=== PATIENT | female | born 1995 | race Caucasian/White ===

== ENCOUNTER 2019-10-13 08:30 | Outpatient (RCR) | payer OTHER, SELFPAY ==
--- NOTE | 2019-09-06 15:33 | PTOPEVAL ---
Thank you for referring this patient to [facility]. Please review, sign, date and return this plan of care PORFIRIO. Pt seen for initial evaluation today due to scar knee pain. She demonstrates scar hip abd weakness, significant muscle tightness of scar LE, poor movement pattern and increased pain with functional movement. She requires additional skilled therapy 2x/wk x 6 wk to achieve therapy goals. I agree with and certify that the following plan of care is medically necessary. Referring Physician Date Attending Provider: Teena Estrella, PA Referring Provider: *PT Outpatient Evaluation Start: 09/06/19 14:25 Freq: Status: Active Protocol: Document 09/06/19 14:33 CAP (Rec: 09/06/19 15:32 CAP [id number]) Outpatient Past Medical History Neurological History Hx Neurological Disorders No Significant History Cardiovascular History Hx Cardiac Disorders No Significant History Respiratory History Hx Respiratory Disorders No Significant History Gastrointestinal History Hx Gastrointestinal Disorders No Significant History Hematological History Hx Hematological Disorders No Significant History Evaluation Information Problem Diagnosis scar knee pain Onset 05/26 Cause none Subjective Information She reports her left knee pain Query Text:As Reported By Patient/ started in 06/23 with no Family known injury. She was playing kickball when her left knee started hurting. She had a x- ray and US with no impairments noted. Her right knee started hurting 05/26 with no known injury. No testing performed on right LE. She c/o grinding and popping of left knee. She c/o pain with right knee motion. Reports the knee will occasionally give out. She reports min pain with squating . She is unable to terence lunges due to pain. She has increased scar knee pain with descending steps. Reports she is unable to terence running due to her knee pain. She has been performing low impact fitness and light UE resistance exercise 2x/wk, but states she is not consistent with going to the gym. Diagnostic Tests X-Rays For This Problem No MRI For This Prob
--- NOTE | 2019-10-13 09:28 | PTOPEVAL ---
Thank you for referring this patient to [facility]. Please review, sign, date and return this plan of care PORFIRIO. Pt has received 9 therapy visits to address chronic scar knee pain. She demonstrates progress with LE strength and flexibility, but limited progress with knee pain with fitness routine and negotiating steps. Recommend additional PT 2x/wk x 2 wk to progress HEP, advanced movement activities and ed on proper technique for fitness routine. I agree with and certify that the following plan of care is medically necessary. Referring Physician Date Attending Provider: Teena Estrella, PA Referring Provider: *PT Outpatient Re-Evaluation Start: 09/06/19 14:25 Freq: Status: Active Protocol: Document 10/13/19 08:36 ALIYA (Rec: 10/13/19 09:18 [facility] [id number]) Therapy Assessment Status Assessment Status Assessment Status Re-evaluation Evaluation Information Problem Diagnosis scar knee pain Onset 05/26 Subjective Information Reports her knee has no pain Query Text:As Reported By Patient/ at rest. But cont to have pain Family with running, steps and walking uneven ground. REports right knee pain with knee ext and cracking noise of left knee with knee ext. Reports the right knee will give out when using the eliptical. She reports no pain with lunges, but slight pain with lunges. States the pain is improved with proper alignment of her legs. She is going to the gym 2-3x/ wk. She is performing HEP and eliptical at the gym. Denies pain with bike, but does not usually use the bike due to does not feel a workout on it. Pain Assessment Timing of Pain Assessment Timing of Pain Assessment Re-assessment Pain Scale Pain Scale Used Numeric (1 - 10) Self Report Pain Assessment Left Knee(s) Reported Pain Level 0 Pain Description Aching Pain Frequency Chronic,Intermittent Current Pain Intensity 0 Greatest Pain Intensity 2 Pain Aggravating Factors Exercise/Activity,Stair Climbing Pain Behaviors None Pain Relief Interventions Used By Exercise Patient Right Knee(s) Reported Pain Level 0 Pain Description Aching Pain Frequency
--- NOTE | 2019-11-15 10:28 | PCPTNOTE ---
Attending Provider: Teena Estrella, PA Patient:Isi Brizuela Date of :1995 Patient has not returned for any further treatments since reassessment on 10/13/2019, therefore she will be discharged from therapy at this time. The goals have been partially achieved due to no additional therapy provided since last therapy update performed. Thank you for referring this patient to [facility]. Please review, sign, date and return this discharge summary PORFIRIO. I have been updated about the patient's current status and I agree with discharge from the above service at this time. Referring Physician Date
== END 2019-11-15 11:21 | disposition home or self-care (01) ==
LOC: ANHPT 08:30
PROVIDERS: PCP Physician Assistant; Visit Provider Physician Assistant
DX: M25.569 Pain in unspecified knee (principal)
CPT/HCPCS: 97110; 97112; 97140; 97162; 97530

== ENCOUNTER 2019-10-31 07:50 | Outpatient (CLI) | payer OTHER, SELFPAY ==
--- NOTE | ~2019-10-31 | MR_ITS ---
EXAMINATION: MR knee LT wo con DATE: 10/31/2019 08:52 INDICATION: Left knee joint disorder presenting with anterior left knee pain. TECHNIQUE: Magnetic resonance imaging (MRI) of the left knee was performed without intravenous contra st. Sequences included coronal PD-weighted FSE, coronal PD-weighted FS FSE, sagittal T2-weighted FSE , sagittal PD-weighted FS FSE and axial PD weighted fat saturated FSE. COMPARISON: None. FINDINGS: Medial compartment: Medial meniscus is normal. Articular cartilage is normal. Lateral compartment: Lateral meniscus is normal. Articular cartilage is normal. Patellofemoral compartment: Full-thickness chondral fissuring with mild subarticular edema along the inferior half of the lateral patellar facet. Mild chondral surface irregularity along the lateral trochlea. Ligaments and tendons: Anterior and posterior cruciate ligaments are normal. The medial collateral ligament and fibular sin ateral ligament complex are normal. The extensor mechanism is normal. The visualized medial and later al hamstring tendons as well as the iliotibial band are normal. Fluid: Physiologic amount of fluid in the joint space. No loose osteochondral bodies identified. Osseous/other: Aside from the subarticular edema at the inferior lateral patellar facet there is normal marrow signa l. No fracture or pathologic marrow replacing process. There is edema at the lateral aspect of the in frapatellar fat pad consistent with fat pad impingement syndrome. IMPRESSION: 1. 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 Reviewed, dictated and finalized at location A. L FURRER IMPRESSION: 1. 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
== END 2019-10-31 07:51 | disposition home or self-care (01) ==
LOC: ANHIMG 07:58
PROVIDERS: PCP Physician Assistant; Visit Provider Physician Assistant
DX: M25.862 Other specified joint disorders, left knee (principal); R93.6 Abnormal findings on diagnostic imaging of limbs
CPT/HCPCS: 73721

== ENCOUNTER 2020-03-02 08:22 | Emergency (ER) | payer OTHER, SELFPAY ==
[2020-03-02 08:52] VITALS: BP 124/82; PULSE 75; RESP 18; TEMP 36.8; O2SAT 100
--- NOTE | 2020-03-02 09:09 | ED.GENADULT ---
HPI - General Adult General Chief complaint: Eye Problems Stated complaint: eye problems Time Seen by Provider: 03/02/20 09:10 Source: patient Mode of arrival: ambulatory Limitations: no limitations History of Present Illness HPI narrative: Isi Brizuela is a 24 yo female with no PMH who comes to the [facility] with spreading poison toi. Is now on face- started yesterday after trimming bushes Related Data Home Medications Medication Instructions Recorded Confirmed desogestrel-ethinyl estradiol tablet 03/02/20 [Isibloom] Allergies Allergy/AdvReac Type Severity Reaction Status Date / Time No Known Allergies Allergy Unknown Unverified 09/03/17 10:36 Review of Systems Review of Systems: Narrative: CONSTITUTIONAL: Denies fever, chills, sweats. EYES: Denies visual changes, redness, discharge. ENT: Denies rhinorrhea, congestion, sore throat, otalgia. CARDIOVASCULAR: Denies chest pain, palpitations, edema. RESPIRATORY: Denies dyspnea, wheezing, cough GASTROINTESTINAL: Denies abdominal pain, nausea, vomiting, diarrhea. GENITOURINARY: Denies dysuria, hematuria, abnormal discharge SKIN: contact dermatitus on neck, fave, L eyelid, arms NEUROLOGIC: Denies numbness, or focal weakness. PSYCHIATRIC: Denies anxiety or depression. [facility] Family History Family History (Updated 03/02/20 @ 09:21 by Kiarra Covington CNP) Other Depression Diabetes mellitus Hypertension Social History Social History (Updated 03/02/20 @ 09:21 by Kiarra Covington CNP) Smoking status: Never smoker Alcohol intake: current Comments At time of signature, I agree with nursing past medical, surgical, social and family history. There is no relevant family history pertinent to the presenting complaint. Exam Narrative: Exam Narrative: GENERAL: This is a well-nourished, well-developed patient, in mild distress. HEAD: normocephalic, atraumatic. EYES: Sclera clear/white. Vision is grossly intact. EARS: External ears normal. Hearing grossly intact. NOSE: External nose normal without nasal discharge, nares without redness, no rhinorrhea. THROAT: Mucous membranes moist, NECK: Neck supple, CARDIOVASCULAR: Regular rate and rhythm without murmurs, gallops, or rubs. RESPIRATORY: Clear to auscultation. Breath sounds equal bilaterally. No wheezes, rales, or rhonchi. GASTROINTESTINAL: Abdomen soft, SKIN: warm, intact with papular rash on neck, forehead, L cheek, L eyelid , forearms, pruretic, intermittent small vesicles NEURO: awake, alert, and oriented to person, place and time. There were no obvious focal neurologic abnormalities. Steady gait EXTREMITIES: Normal range of motion. BACK: Nontender without deformity Course Course Emergency Course: IM penicillin injection now Started on prednisone taper pack along with Benadryl and hydrocortisone/Benadryl lotion Follow-up with PCP Vital Signs Vital signs: Vital Signs Temperature 98.2 F 03/02/20 08:52 Pulse Rate 75 03/02/20 08:52 Respiratory Rate 18 03/02/20 08:52 Blood Pressure 124/82 03/02/20 08:52 Pulse Oximetry 100 03/02/20 08:52 Temperature 98.2 F 03/02/20 08:52 Pulse Rate 75 03/02/20 08:52 Respiratory Rate 18 03/02/20 08:52 Blood Pressure 124/82 03/02/20 08:52 Pulse Oximetry 100 03/02/20 08:52 Medical Decision Making Differential Diagnosis Differential Diagnosis: Contact dermatitis versus poison toi versus bacterial infection Vital Signs Vital Signs: Vital Signs Temperature 98.2 F 03/02/20 08:52 Pulse Rate 75 03/02/20 08:52 Respiratory Rate 18 03/02/20 08:52 Blood Pressure 124/82 03/02/20 08:52 Pulse Oximetry 100 03/02/20 08:52 Temperature 98.2 F 03/02/20 08:52 Pulse Rate 75 03/02/20 08:52 Respiratory Rate 18 03/02/20 08:52 Blood Pressure 124/82 03/02/20 08:52 Pulse Oximetry 100 03/02/20 08:52 Discharge Plan Discharge Clinical Impression: Contact dermatitis Qualifiers: Contact d
--- NOTE | 2020-03-02 10:18 | PC.NURSE ---
solumedrol discontinued by provider and decadron was ordered and given.
== END 2020-03-02 10:02 | disposition home or self-care (01) ==
PROVIDERS: Emergency Provider Nurse Practitioner
DX: L23.7 Allergic contact dermatitis due to plants, except food (principal)
CPT/HCPCS: 96372; 99213; G0463; J1100

== ENCOUNTER 2021-05-13 17:09 | Inpatient (IN) | payer OTHER, SELFPAY ==
[2021-05-13] VITALS (16 sets, daily range): BP systolic 91–137; BP diastolic 51–83; PULSE 87–98; RESP 18; TEMP 36.9–37.4; BMI 33.5
[2021-05-13 17:47] LABS: Basophils Percent Auto 0.1 % (0.2-1.2); Eosinophils Percent Auto 0.3 % (0-4.4); Hematocrit 33.4 % (37.0-47.0); Hemoglobin 11.4 g/dL (12.0-15.0); Immature Granulocyte Absolute 0.05 K/mm3 (0.00-0.031); Immature Granulocyte Percent A 0.5 % (0-0.5); Lymphocytes Absolute Auto 2.01 K/mm3 (0.9-3.2); Lymphocytes Percent Auto 21.5 % (18.3-44.2); Mean Corpuscular HGB Conc 34.1 g/dl (32-36); Mean Corpuscular Hemoglobin 31.1 pg (26-34); Mean Corpuscular Volume 91.3 fl (80-100); Mean Platelet Volume 10.8 fl (7.4-10.4); Monocytes Absolute Auto 0.7 K/mm3 (0.1-0.6); Monocytes Percent Auto 7.5 % (2.6-8.5); Neutrophils Absolute Auto 6.6 K/mm3 (1.3-6.7); Neutrophils Percent Auto 70.1 % (45.5-73.1); Platelet Count Result 181 k/mm3 (150-375); Red Blood Count 3.66 M/mm3 (4.2-5.4); Red Cell Distribution Width 12.1 % (11.5-14.5); White Blood Count 9.4 K/mm3 (4.5-10.0)
--- NOTE | 2021-05-13 17:51 | LDADM ---
This patient, FRANTZ MARTINEZ, was admitted to Labor/Delivery/Recovery 107 on 05/13/21 at 17:09. Plans for labor, pain management and were discussed with patient. Patient/family oriented to hospital policies and general routines including ID bracelet, bed and alarms, visiting hours, pain management, procedures, bathroom and other care routines, personal items, smoking policy, room service/diet and guest tray routines, security routines, and visiting hours. Patient/Family are encouraged to report perceived risks to care and to ask questions if they do not understand what they are told or what they should do. See OBIX for further documentation.
[2021-05-13 18:00] LABS: Alanine Aminotransferase 21 U/L (4-35); Albumin Level 3.6 g/dL (3.5-5.1); Alkaline Phosphatase 109 U/L (38-126); Anion Gap 6 mmol/L (8-16); Aspartate Amino Transferase 27 U/L (14-36); Bilirubin,Total 0.5 mg/dL (0.2-1.3); Blood Urea Nitrogen 13 mg/dL (7-17); Carbon Dioxide 19 mmol/L (22-30); Chloride 109 mmol/L (98-107); Estimated Glomerular Filt Rate > 60; Glucose 94 mg/dL (65-110); Potassium 3.8 mmol/L (3.4-5.0); Sodium 134 mmol/L (137-145); Uric Acid 5.3 mg/dL (2.5-7.5)
[2021-05-13] MEDS: DINOPROSTONE 10 MG VAG INSERT VAGINAL (18:32)
[2021-05-14] VITALS (201 sets, daily range): BP systolic 85–169; BP diastolic 24–136; PULSE 38–255; RESP 16–20; TEMP 36.2–37; O2SAT 84–100
--- NOTE | 2021-05-14 06:08 | WPDANESEPP ---
Anes - Eval Pre Procedure Procedure: labor epidural Date/Time: 05/14/21 06:08 Surgeon: benjamin Preop Diagnosis: pain during labor Pre Op Diagnosis: Induction of Labor Patient Data Age: 26 Gender: F Height: 1.73 m Weight: 100 kg Last Vital Signs Temp 37.0 C 05/14/21 04:09 Pulse 87 05/14/21 05:47 Resp 20 05/14/21 04:09 BP 110/65 05/14/21 05:47 Allergies Allergy/AdvReac Type Severity Reaction Status Date / Time No Known Allergies Allergy Verified 04/27/21 13:42 Home Medications Medication Instructions Recorded Confirmed Type labetalol 100 mg PO Q12H 04/27/21 04/27/21 History [id number] fum-folic ac-om3 1 pkg PO DAILY 04/27/21 04/27/21 History [Daily ] Laboratory Tests 05/13/21 05/13/21 05/13/21 17:38 17:38 17:38 WBC 9.4 K/mm3 K/mm3 (4.5-10.0) RBC 3.66 M/mm3 L M/mm3 (4.2-5.4) Hgb 11.4 g/dL L g/dL (12.0-15.0) Hct 33.4 % L % (37.0-47.0) MCV 91.3 fl fl (80-100) MCH 31.1 pg pg (26-34) MCHC 34.1 g/dl g/dl (32-36) RDW 12.1 % % (11.5-14.5) Plt Count 181 k/mm3 k/mm3 (150-375) MPV 10.8 fl H fl (7.4-10.4) Immature Gran % (Auto) 0.5 % % (0-0.5) Neut % (Auto) 70.1 % % (45.5-73.1) Lymph % (Auto) 21.5 % % (18.3-44.2) Deuel % (Auto) 7.5 % % (2.6-8.5) Eos % (Auto) 0.3 % % (0-4.4) Baso % (Auto) 0.1 % L % (0.2-1.2) Lymph # (Auto) 2.01 K/mm3 K/mm3 (0.9-3.2) Deuel # (Auto) 0.7 K/mm3 H K/mm3 (0.1-0.6) Eos # (Auto) 0.0 K/mm3 K/mm3 (0-0.3) Baso # (Auto) 0.0 K/mm3 K/mm3 (0.0-0.1) Abs Immat Gran (auto) 0.05 K/mm3 H K/mm3 (0.00-0.031) Absolute Neuts (auto) 6.6 K/mm3 K/mm3 (1.3-6.7) Absolute Nucleated RBC 0.0 K/mm3 K/mm3 (0.0-0.012) Nucleated RBC % 0.0 % % (0.0-0.2) Sodium 134 mmol/L L mmol/L (137-145) Potassium 3.8 mmol/L mmol/L (3.4-5.0) Chloride 109 mmol/L H mmol/L (98-107) Carbon Dioxide 19 mmol/L L mmol/L (22-30) Anion Gap 6 mmol/L L mmol/L (8-16) BUN 13 mg/dL mg/dL (7-17) Creatinine 0.80 mg/dL mg/dL (0.7-1.0) Estim Creat Clear Calc Not Reportable Estimated GFR > 60 (59 - ) Glucose 94 mg/dL mg/dL (65-110) Uric Acid 5.3 mg/dL mg/dL (2.5-7.5) Calcium 9.0 mg/dL mg/dL (8.4-10.2) Total Bilirubin 0.5 mg/dL mg/dL (0.2-1.3) AST 27 U/L U/L (14-36) ALT 21 U/L U/L (4-35) Alkaline Phosphatase 109 U/L U/L (38-126) Total Protein 7.0 g/dL g/dL (6.3-8.2) Albumin 3.6 g/dL g/dL (3.5-5.1) RPR Pending Blood Type Antibody Screen 05/13/21 05/13/21 17:38 17:38 WBC RBC Hgb Hct MCV MCH MCHC RDW Plt Count MPV Immature Gran % (Auto) Neut % (Auto) Lymph % (Auto) Deuel % (Auto) Eos % (Auto) Baso % (Auto) Lymph # (Auto) Deuel # (Auto) Eos # (Auto) Baso # (Auto) Abs Immat Gran (auto) Absolute Neuts (auto) Absolute Nucleated RBC Nucleated RBC % Sodium Cancelled Potassium Cancelled Chloride Cancelled Carbon Dioxide Cancelled Anion Gap Cancelled BUN Cancelled Creatinine Cancelled Estim Creat Clear Calc Cancelled Estimated GFR Cancelled Glucose Cancelled Uric Acid Calcium Cancelled Total Bilirubin Cancelled AST Cancelled ALT Cancelled Alkaline Phosphatase Cancelled Total Protein Cancelled Albumin Cancelled RPR
--- NOTE | 2021-05-14 07:47 | WPDOBADMIT ---
Obstetrics - Admit Note Admission Note: 26 y/o G1 @ 38w1d here for induction of labor d/t chtn. VSS Contractions occasiona FHR category 1 Cervix 60/-2 Anticipate record reviewed. No pertinent additions to the history and/or any subsequent changes in the physical findings that are not consistent with the expected course of the were found. Additions to the history and/or subsequent changes in the physical findings follow. None.
[2021-05-14] MEDS: OXYTOCIN 30 UNITS/NS 500 ML 30 UNITS/500 ML BAG 6 UNITS IV CONT (08:28)
[2021-05-14] MEDS: LACTATED RINGERS 1,000 ML 125 ML IV CONT (08:28)
[2021-05-14 10:30] LABS: Rapid Plasma Reagin Non-Reactive (NonReactive)
--- NOTE | 2021-05-14 13:04 | P.PNOB_ITS ---
OB - PN: Subj Subjective Date/time seen: 05/14/21 13:04 discussed abnormal heart tones with patient, we discussed proceeding with delivery. We observed for a period of time. After an hour of the decelerations of the heart rate appeared resolved. We have agreed to move forward. She has made some cervical change. There is reassuring status. OB - PN: Obj Data Labs CBC & Chem 7: 05/13/21 17:38 05/13/21 17:38 Labs: Laboratory Results - last 24 hr 05/13/21 05/13/21 05/13/21 17:38 17:38 17:38 WBC 9.4 RBC 3.66 L Hgb 11.4 L Hct 33.4 L MCV 91.3 MCH 31.1 MCHC 34.1 RDW 12.1 Plt Count 181 MPV 10.8 H Immature Gran % (Auto) 0.5 Neut % (Auto) 70.1 Lymph % (Auto) 21.5 Cascade % (Auto) 7.5 Eos % (Auto) 0.3 Baso % (Auto) 0.1 L Lymph # (Auto) 2.01 Cascade # (Auto) 0.7 H Eos # (Auto) 0.0 Baso # (Auto) 0.0 Abs Immat Gran (auto) 0.05 H Absolute Neuts (auto) 6.6 Absolute Nucleated RBC 0.0 Nucleated RBC % 0.0 Sodium 134 L Potassium 3.8 Chloride 109 H Carbon Dioxide 19 L Anion Gap 6 L BUN 13 Creatinine 0.80 Estim Creat Clear Calc Not Reportable Estimated GFR > 60 Glucose 94 Uric Acid 5.3 Calcium 9.0 Total Bilirubin 0.5 AST 27 ALT 21 Alkaline Phosphatase 109 Total Protein 7.0 Albumin 3.6 RPR Non-reactive Blood Type Antibody Screen 05/13/21 05/13/21 17:38 17:38 WBC RBC Hgb Hct MCV MCH MCHC RDW Plt Count MPV Immature Gran % (Auto) Neut % (Auto) Lymph % (Auto) Cascade % (Auto) Eos % (Auto) Baso % (Auto) Lymph # (Auto) Cascade # (Auto) Eos # (Auto) Baso # (Auto) Abs Immat Gran (auto) Absolute Neuts (auto) Absolute Nucleated RBC Nucleated RBC % Sodium Cancelled Potassium Cancelled Chloride Cancelled Carbon Dioxide Cancelled Anion Gap Cancelled BUN Cancelled Creatinine Cancelled Estim Creat Clear Calc Cancelled Estimated GFR Cancelled Glucose Cancelled Uric Acid Calcium Cancelled Total Bilirubin Cancelled AST Cancelled ALT Cancelled Alkaline Phosphatase Cancelled Total Protein Cancelled Albumin Cancelled RPR Blood Type O Positive Antibody Screen Negative OB - PN A/P Time Spent With Patient Time: Total time spent is greater than 50% in coordination of care (as document ed) at patient's floor/unit and/or counseling patient:
--- NOTE | 2021-05-14 16:50 | PM.IMHP ---
H&P: HPI History of Present Illness Date/Time: 05/14/21 16:50 This patient is a 26-year-old female, 1 at 38 weeks gestation with chronic hypertension. She was induced for chronic hypertension. She has had nonreassuring heart tones at times throughout the day during her induction of labor. She denies any nausea, vomiting, fever, chills. She is lisbeth. She has epidural that is working well. She denies any chest pain or shortness of breath. Chief Complaint: Nonreassuring status Review of Systems Review of Systems: All systems reviewed & are unremarkable except as noted in HPI and below PMFSH Past Medical History Medical History (Updated 05/14/21 @ 16:53 by Greg Betancourt MD) HTN (hypertension) Family History Family History (Updated 04/27/21 @ 13:41 by Susan Choudhary RN) Father Diabetes mellitus Hypertension Social History Social History Smoking status: Never smoker Substance use: never Gender identity (if verbalized by the patient): Female Spiritual care concerns: No Meds Home Medications and Allergies Home Medications Medication Instructions Recorded Confirmed Type labetalol 100 mg PO Q12H 04/27/21 04/27/21 History [id number] fum-folic ac-om3 1 pkg PO DAILY 04/27/21 04/27/21 History [Daily ] Allergies Allergy/AdvReac Type Severity Reaction Status Date / Time No Known Allergies Allergy Verified 04/27/21 13:42 Vital Signs Vital Signs - 24 hr 05/13/21 17:27 05/13/21 17:31 05/13/21 17:46 Temperature Pulse Rate 98 96 95 Respiratory Rate Blood Pressure 135/82 137/83 133/76 Pulse Oximetry 05/13/21 18:01 05/13/21 18:16 05/13/21 18:34 Temperature 98.5 F Pulse Rate 88 87 Respiratory Rate 18 Blood Pressure 126/71 124/74 Pulse Oximetry 05/13/21 18:46 05/13/21 19:01 05/13/21 19:16 Temperature Pulse Rate 89 92 96 Respiratory Rate Blood Pressure 121/71 121/69 102/51 L Pulse Oximetry 05/13/21 19:31 05/13/21 19:46 05/13/21 20:01 Temperature Pulse Rate 92 90 93 Respiratory Rate Blood Pressure 108/51 L 97/55 L 91/55 L Pulse Oximetry 05/13/21 20:16 05/13/21 20:31 05/13/21 21:45 Temperature 99.3 F Pulse Rate 89 92 Respiratory Rate Blood Pressure 104/59 L 105/58 L Pulse Oximetry 05/13/21 21:57 05/14/21 01:49 05/14/21 01:50 Temperature 98.3 F Pulse Rate 92 79 Respiratory Rate 18 Blood Pressure 124/80 116/58 L Pulse Oximetry 05/14/21 04:09 05/14/21 05:47 05/14/21 07:44 Temperature 98.6 F 97.7 F Pulse Rate 88 87 83 Respiratory Rate 20 Blood Pressure 100/61 110/65 129/88 Pulse Oximetry 05/14/21 09:01 05/14/21 09:16 05/14/21 09:30 Temperature 98.2 F Pulse Rate 89 91 Respiratory Rate Blood Pressure 133/75 118/83 Pulse Oximetry 05/14/21 09:31 05/14/21 09:46 05/14/21 10:01 Temperature Pulse Rate 96 84 88 Respiratory Rate Blood Pressure 129/95 H 149/99 H 146/106 H Pulse Oximetry 05/14/21 10:14 05/14/21 10:15 05/14/21 10:16 Temperature Pulse Rate 95 97 Respiratory Rate Blood Pressure 140/81 134/86 Pulse Oximetry 100 05/14/21 10:17 05/14/21 10:19 05/14/21 10:21 Temperature Pulse Rate 88 91 84 Respiratory Rate Blood Pressure 127/82 109/97 H 128/97 H Pulse Oximetry 100 05/14/21 10:23 05/14/21 10:24 05/14/21 10:25 Temperature Pulse Rate 92 90 Respiratory Rate Blood Pressure 121/88 120/90 Pulse Oximetry 100 05/14/21 10:27 05/14/21 10:28 05/14/21 10:29 Temperature Pulse Rate 89 74 Respiratory Rate Blood Pressure 116/94 H 123/70 Pulse Oximetry 100 05/14/21 10:31 05/14/21 10:33 05/14/21 10:35 Temperature Pulse Rate 87 79 86 Respiratory Rate Blood Pressure 134/66 121/71 108/54 L Pulse Oximetry 100 05/14/21 10:37 05/14/21 10:38 05/14/21 10:39 Temperature Pulse Rate 80 89 Respiratory Rate Blood Pressure 109/55 L 123/55 L P
--- NOTE | 2021-05-14 16:54 | WPDHPUPDATE1 ---
History and Physical Update Update Date/Time: 05/14/21 16:54 History and Physical has been reviewed, including an updated exam of the patient. There are NO changes in the patient's condition. Risks, benefits, and alternatives have been discussed and questions answered. Patient agrees to proceed with procedure.
[2021-05-14] MEDS: KETOROLAC 30 MG/ML VIAL (*BKC) IV PUSH (17:30)
--- NOTE | 2021-05-14 18:00 | W.PM.PROC2 ---
Procedure Note - Detailed Date of Procedure 05/14/21 Pre-op Diagnosis Nonreassuring heart tones, chronic hypertension, failure to progress Post-op Diagnosis same Procedure Performed Low-transverse section Surgeon Greg Betancourt MD Anesthesia spinal Findings Normal gestational maternal anatomy, average size , normal Apgars. Description of Procedure The patient was taken the operating room. She was prepped and draped in dorsal supine position with a leftward tilt. This was done after spinal anesthetic was applied. A low-transverse skin incision was made and carried down till of the fascia with the knife. The fascial incision was made with the knife. The fascial incision was extended laterally with Ag scissors. The fascia was tented upward superiorly and inferiorly the rectus muscles were dissected off bluntly. The rectus muscles were the midline. The preperitoneal fat and peritoneum were dissected open bluntly at the superior aspect of the rectus muscles. The peritoneal incision was extended superior and inferior with good position of bladder. The uterine incision was made with a scalpel down to the level of the amniotic cavity. The amniotic cavity was entered bluntly. The infant was delivered. The cord was clamped and cut and the infant was handed off to waiting pediatric staff. Cord bloods were obtained. The placenta was removed manually. The uterus was exteriorized. The uterus was cleared of all clots, debris and membranes. The uterus was closed in 0 Vicryl running lock fashion. An imbricating over a was placed along the incision line as well. The uterus was returned to the abdomen. The gutters were cleared of all clots and debris. The fascia was closed with 0 Vicryl running fashion. The subcutaneous tissue was irrigated pinpoint bleeders were cauterized. The skin was closed with subcuticular absorbable carrie. The skin incision line was covered with glue. The patient tolerated the procedure well. She has taken recovery room in stable condition. Sponge lap and needle counts were correct x2. Estimated Blood Loss 700 Pathology yes Complications No immediate complications Condition stable Disposition PACU
[2021-05-14] MEDS: HYDROmorphone HCL INJ (*CRX) 1 MG/ML SYR 0.5 MG IV PUSH ×2 (19:25→20:57)
[2021-05-14] MEDS: OXYTOCIN 30 UNITS/NS 500 ML 30 UNITS/500 ML BAG 125 UNITS IV CONT (19:25)
--- NOTE | 2021-05-14 20:02 | SUR.PHASEI ---
0 - Underpad and peripad changed; pt tolerated well.
--- NOTE | 2021-05-14 21:06 | OBPPTRN ---
Patient transferred to post room #286 via stretcher. Support person present. Oriented to unit, room, information board, rooming in, admission packet and security measures. Patient verbalizes understanding.
--- NOTE | 2021-05-14 21:23 | PC.NURSE ---
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 Orders for 0.5mg IVpush Diludid once now.
[2021-05-14] MEDS: LABETALOL HCL 100 MG TABLET PO (21:53)
[2021-05-14] MEDS: SIMETHICONE 80 MG TAB.CHEW PO (22:50)
[2021-05-14] MEDS: HYDROcodone/acetaminophen (*CRX) 10-325 MG TABLET 1 TAB PO (22:51)
[2021-05-14] MEDS: IBUPROFEN 600 MG TABLET PO (22:51)
[2021-05-15] MEDS: LANOLIN (LANSINOH) 7.5 GM CREAM 1 APPLIC TOPICAL
[2021-05-15 03:32] LABS: Basophils Percent Auto 0.2 % (0.2-1.2); Eosinophils Percent Auto 0.2 % (0-4.4); Hematocrit 24.3 % (37.0-47.0); Hemoglobin 8.3 g/dL (12.0-15.0); Immature Granulocyte Absolute 0.06 K/mm3 (0.00-0.031); Immature Granulocyte Percent A 0.5 % (0-0.5); Lymphocytes Absolute Auto 1.79 K/mm3 (0.9-3.2); Lymphocytes Percent Auto 13.5 % (18.3-44.2); Mean Corpuscular HGB Conc 34.2 g/dl (32-36); Mean Corpuscular Hemoglobin 31.9 pg (26-34); Mean Corpuscular Volume 93.5 fl (80-100); Mean Platelet Volume 10.8 fl (7.4-10.4); Monocytes Percent Auto 7.2 % (2.6-8.5); Neutrophils Absolute Auto 10.4 K/mm3 (1.3-6.7); Neutrophils Percent Auto 78.4 % (45.5-73.1); Platelet Count Result 142 k/mm3 (150-375); Red Cell Distribution Width 12.2 % (11.5-14.5); White Blood Count 13.2 K/mm3 (4.5-10.0)
[2021-05-15 03:45] VITALS: BP 111/62; PULSE 90; RESP 18; TEMP 36.8
[2021-05-15] MEDS: HYDROcodone/acetaminophen (*CRX) 10-325 MG TABLET 1 TAB PO ×2 (04:56→09:22)
[2021-05-15] MEDS: IBUPROFEN 600 MG TABLET PO ×3 (04:56→19:20)
--- NOTE | 2021-05-15 08:12 | P.PNOB_ITS ---
OB - PN: Subj Subjective Date/time seen: 05/15/21 08:12 Patient comments: no complaints, pain well controlled, tolerating diet and flatus present OB - PN: Obj Data Labs CBC & Chem 7: 05/15/21 03:08 05/13/21 17:38 Labs: Laboratory Results - last 24 hr 05/13/21 05/15/21 17:38 03:08 WBC 13.2 H RBC 2.60 L Hgb 8.3 L D Hct 24.3 L MCV 93.5 MCH 31.9 MCHC 34.2 RDW 12.2 Plt Count 142 L MPV 10.8 H Immature Gran % (Auto) 0.5 Neut % (Auto) 78.4 H Lymph % (Auto) 13.5 L [place] % (Auto) 7.2 Eos % (Auto) 0.2 Baso % (Auto) 0.2 Lymph # (Auto) 1.79 [place] # (Auto) 1.0 H Eos # (Auto) 0.0 Baso # (Auto) 0.0 Abs Immat Gran (auto) 0.06 H Absolute Neuts (auto) 10.4 H Absolute Nucleated RBC 0.0 Nucleated RBC % 0.0 RPR Non-reactive OB - PN A/P Plan day: 1 Comments: Post Op LTCS - no problems, routine recovery Time Spent With Patient Time: Total time spent is greater than 50% in coordination of care (as documented) at patient's floor/unit and/or counseling patient: Exam Const: General: cooperative, healthy appearing, comfortable and no acute distress Resp: Auscultation: no crackles, no rales, no rhonchi and no wheezes Cardio: Rhythm: regular rhythm Heart sounds: no click and no murmurs GI: Inspection: non-distended Auscultation: normal bowel sounds Extrem: General: normal to inspection, no pedal edema and no calf tenderness
--- NOTE | 2021-05-15 08:20 | PC.NURSE ---
Primary RN requested observation of feeding. Mother reports has been eagerly latching without difficulties or discomfort. is able to freely thrust tongue past gum ridge and flange both lips. Skin is intact on both nipples, no redness and bruising noted. Mother has to breast in football positioning, allowing to self attach. Reviewed feeding cues, frequencies, duration of feedings, feeding elimination flow sheet, and signs of adequate intake. Demonstrated stimulation techniques to wake for feeding. Assisted with to breast. Reviewed positioning/alignment in football, holding breast in ?C? hold and guided asymmetrical latch on. Discussed rational for each. able to latch correctly. Reviewed signs of a correct latch, effective nursing and suck swallow ratio. nursed eagerly, with steady draws and frequent swallowing noted. Reviewed the difference of effective vs ineffective nursing. Suggested mother stimulate while feeding to increase stimulation, increase intake and to assist with maintaining deep latch. Infant was on and off during feeding, suggesting to hold breast during entire feeding to assist infant with maintaining latch. Infant would slip to shallow latch. Demonstrated how to adjust latch more deeply while feeding. Nipple care reviewed of lanolin after feedings, warm compresses as needed.
--- NOTE | 2021-05-15 08:36 | WPDANLDPN2 ---
Anes-Prog Note L&D Date/Time: 05/15/21 08:36 Comfortable throughout: labor and section Neuraxial method: epidural Epidural/Spinal procedure site: clean & non-tender Neuro status: Neuro function grossly intact. Cardiovascular status: normal Respiratory status: normal Airway patency: baseline Mental status: baseline Post-Op hydration status: normal Vital Signs: Last Vital Signs Temp 36.8 C 05/15/21 03:45 Pulse 90 05/15/21 03:45 Resp 18 05/15/21 03:45 BP 111/62 05/15/21 03:45 Pulse Ox 100 05/14/21 21:06 Pain score (VAS): 3 I/O: Intake & Output 05/14/21 05/15/21 05/15/21 23:59 07:59 15:59 Intake Total 3000 Output Total 303 1050 Balance -303 1950 Post-procedural complaints: none Patient feedback: Patient satisfied with anesthetic care.
--- NOTE | 2021-05-15 08:36 | WPDANLDNPN2 ---
Anes-Prog Note L&D-Neuraxial Date/Time: 05/15/21 08:36 Neuraxial medications: epidural PF morphine Opiod-related complaints: none Patient feedback: Patient satisfied with post-operative pain management.
[2021-05-15 09:00] VITALS: BP 119/59; PULSE 88; RESP 18; TEMP 36.5; O2SAT 98
[2021-05-15] MEDS: DOCUSATE SODIUM 100 MG CAPSULE PO ×2 (09:21→16:36)
[2021-05-15] MEDS: POLYSACCHARIDE IRON COMPLEX 150 MG CAPSULE PO ×2 (09:21→16:36)
[2021-05-15] MEDS: MULTIVIT/MIN/PREN/FOL AC/IRON TABLET 1 TAB PO (09:21)
[2021-05-15 13:00] VITALS: BP 125/66; PULSE 92; RESP 18; TEMP 36.6; O2SAT 98
[2021-05-15] MEDS: HYDROcodone/acetaminophen (*CRX) 5-325 MG TABLET 1 TAB PO ×3 (13:02→21:46)
--- NOTE | 2021-05-15 14:00 | PC.NURSE ---
Parents called out for assist with waking infant for feeding. Demonstrated stimulation techniques to wake for feeding. Infant remains sleepy. Assisted with infant to breast several times with no successful latch. Suggested to allow to rest or skin to skin for 20 minutes and retry. Parents concerned is not waking to feed, assured parents this is normal behavior and infants are sleepy the first few days.
--- NOTE | 2021-05-15 14:30 | PC.NURSE ---
Assisted with to breast. Reviewed positioning/alignment in cross cradle, holding breast in ?U? hold and guided asymmetrical latch on. Discussed rational for each. remains sleepy with several attempts before able to latch correctly. Small amount of glucose water offered to entice to feed. Reviewed signs of a correct latch, effective nursing and suck swallow ratio. Infant nursed eagerly, with steady draws and frequent swallowing noted. Reviewed the difference of effective vs ineffective nursing. Suggested mother stimulate while feeding to increase stimulation, increase intake and to assist with maintaining deep latch. Infant was able to maintain latch without discomfort to mother. Mother would release latch and infant would slip to shallow latch or release latch. Suggested for mother to hold breast during entire feeding to assist maintaining deep latch for increased intake and stimulation of milk supply. Instructed mother to call out for RN assistance if she is unable to latch infant for feeding or she has discomfort with nursing. Instructed feeding should be initiated three hours from start of last feeding or if feeding cues are noted before. Mother voiced understanding of information shared.
[2021-05-15 20:15] VITALS: BP 113/64; PULSE 98; RESP 16; TEMP 36.8; O2SAT 100
[2021-05-16] MEDS: IBUPROFEN 600 MG TABLET PO ×3 (05:28→18:43)
[2021-05-16] MEDS: HYDROcodone/acetaminophen (*CRX) 5-325 MG TABLET 1 TAB PO ×3 (05:28→18:42)
--- NOTE | 2021-05-16 08:21 | P.PNOB_ITS ---
OB - PN: Subj Subjective Date/time seen: 05/16/21 08:21 Patient comments: no complaints, pain well controlled, incisional pain, tolerating diet and flatus present OB - PN: Obj Data Labs CBC & Chem 7: 05/15/21 03:08 05/13/21 17:38 OB - PN A/P Plan day: 2 Plan: routine care Comments: POD#2 LTCS - no problems, Time Spent With Patient Time: Total time spent is greater than 50% in coordination of care (as brandt chan) at patient's floor/unit and/or counseling patient: Exam Const: General: comfortable, no acute distress and alert Resp: Effort & Inspection: normal respiratory effort Auscultation: no crackles, no rales and no rhonchi Cardio: Rate: regular rate Heart sounds: no click, no murmurs and no rubs GI: Inspection: non-distended GI Palp: No Tenderness to palpation present (GI) Auscultation: normal bowel sounds Other: Incision - CDI Extrem: General: normal to inspection, no pedal edema and no calf tenderness
--- NOTE | 2021-05-16 08:21 | PM.OBDSVD ---
DS: Admitting Diagnosis Discharge Date 05/17/2021 Admitting Diagnosis term DS: Discharge Diagnosis Discharge Diagnosis (1) Non-reassuring heart tones complicating , antepartum: Code(s): O36.8390 - Maternal care for abnormalities of the heart rate or rhythm, unspecified trimester, not applicable or unspecified Status: Acute (2) HTN (hypertension): Code(s): I10 - Essential (primary) hypertension Status: Acute OB - DS: Summary OB Procedures : NST and Ultrasound OB Procedures Intrapartum: OB Procedures: : None Peripartum Data Delivery Method: Section Procedures: Procedures Operation Date: 05/14/21 17:20 Actual Procedure Side Surgeon p Section Greg Betancourt MD Time Spent with Patient Time attestation: Total time spent providing and/or coordinating discharge services: DS: Data Data Completed and Pending Pending studies at discharge: Pending at discharge 05/14/21 18:23 Surgical [PTH] Routine Discharge Plan Discharge Discharging Clinician: Greg Betancourt Patient Disposition: Home, Self-Care Activity: pelvic rest Diet: regular Patient Instructions: Antibiotic Form Stand Alone Forms: General Discharge Information Follow-up/Referrals: Greg Betancourt MD [Physician] - Discharge Medications: New hydrocodone-acetaminophen 5-325 mg tablet 1 - 2 tablet PO Q4H PRN (Reason: pain) Qty: 25 RF: 0 Continued labetalol 100 mg Tablet 100 mg PO Q12H RF: 0 Daily [phone] mg-mcg-mg Combo Pack 1 pkg PO DAILY RF: 0 Date of admission: 05/13/21 17:09 Primary Care Provider: Deuce*Teena Admitting Provider: Greg Betancourt Attending physician on admission: Greg Betancourt Condition: Stable
[2021-05-16 08:30] VITALS: BP 120/63; PULSE 82; RESP 18; TEMP 36.9; O2SAT 100
[2021-05-16] MEDS: POLYSACCHARIDE IRON COMPLEX 150 MG CAPSULE PO ×2 (08:49→17:42)
[2021-05-16] MEDS: MULTIVIT/MIN/PREN/FOL AC/IRON TABLET 1 TAB PO (08:49)
[2021-05-16] MEDS: DOCUSATE SODIUM 100 MG CAPSULE PO ×2 (08:49→17:42)
[2021-05-16 09:00] VITALS: PULSE 80
[2021-05-16 16:05] VITALS: BP 113/71; PULSE 93; RESP 18; TEMP 37.3
[2021-05-16 20:17] VITALS: BP 139/88; PULSE 97; RESP 18; TEMP 37.3; O2SAT 100
[2021-05-17] MEDS: IBUPROFEN 600 MG TABLET PO ×2 (00:05→07:04)
[2021-05-17 07:00] VITALS: BP 130/87; PULSE 93; RESP 18; TEMP 37.1
[2021-05-17] MEDS: DOCUSATE SODIUM 100 MG CAPSULE PO (07:04)
[2021-05-17] MEDS: POLYSACCHARIDE IRON COMPLEX 150 MG CAPSULE PO (07:05)
[2021-05-17] MEDS: HYDROcodone/acetaminophen (*CRX) 5-325 MG TABLET 1 TAB PO (07:05)
[2021-05-17] MEDS: MULTIVIT/MIN/PREN/FOL AC/IRON TABLET 1 TAB PO (07:05)
--- NOTE | 2021-05-17 07:51 | PM.OBPNVD ---
OB - PN: Subj Subjective Date/time seen: 05/17/21 07:51 Patient comments: no complaints, pain well controlled, incisional pain, tolerating diet and flatus present OB - PN: Obj Data Labs CBC & Chem 7: 05/15/21 03:08 05/13/21 17:38 OB - PN A/P Plan day: 3 Plan: routine care Comments: POD#2 LTCS - no problems, D/C today Time Spent With Patient Time: Total time spent is greater than 50% in coordination of care (as documented) at patient's floor/unit and/or counseling patient: Exam Const: General: comfortable, no acute distress and alert Resp: Effort & Inspection: normal respiratory effort Auscultation: no crackles, no rales and no rhonchi Cardio: Rate: regular rate Heart sounds: no click, no murmurs and no rubs GI: Inspection: non-distended GI Palp: No Tenderness to palpation present (GI) Auscultation: normal bowel sounds Other: Incision - CDI Extrem: General: normal to inspection, no pedal edema and no calf tenderness
--- NOTE | 2021-05-17 09:10 | PC.NURSE ---
Consult with pt., mother reports infant is more awake and eagerly feeding. Mother is now pump 30-40 mls per session. Mother is able to independently latch with appropriate positioning/alignment. She denies any nipple discomfort, is feeding as required and waking to feed if needed. has had several effective feedings followed with supplementation in the past 24 hours, and is currently meeting outcomes for weight, output, jaundice and feeding frequencies. Supplementation was initiated due to low urine output, parents wish to continue with supplement until infant is eager at all feedings. Mother continues to pump without difficulties or discomfort after all feedings due to sleepiness. Mother states she feels confident to continue current feeding plan at home. Mother has her own double electric pump for home use. Discussed increasing supplementation as requires to satisfactions. Reviewed paced feeding and suggested to stop when is satisfied, as long as is having required output. With increased supplementation may not want to feed for 4 hours. Mother will continue to pump on infant feeding schedule and will increase session to 20 minutes if pumping every 4 hours. Reviewed once mother?s milk is established and infant is effectively feeding infant may have increased intake with nursing. If is effective feeding with long draws and frequent swallowing noted , infant may be ready to decrease/discontinue supplementation. Advised not to discontinue supplement until ICP, Follow-Up RN or LC has a pre/post weighted evaluation of infant feeding. Mother states she may want to switch to pumping and bottle feeding. Reviewed to continue to pump every three hours and infant may have as much as she desires per feeding. Reviewed transition to breast milk, signs of adequate intake, and engorgement/relief. Instructed to call ICP if intake/output less than required. Reviewed regular medications mother is taking. Information provided per Kassandra. Reviewed community resources on the [employer] website and in the Mom/Baby guide. Information on outpatient services provided. Mother has no further questions at this time.
[2021-05-17] MEDS: MEASLES,MUMPS,RUBELLA VACCINE 0.5 ML VIAL SUB-Q (12:22)
[2021-05-18 10:59] VITALS: BP 128/83; PULSE 94; RESP 20; TEMP 37.1; O2SAT 99
== END 2021-05-17 12:45 | disposition home or self-care (01) | DRG 788 ==
LOC: ANHLDR 17:14 → ANHOB2 05-14 21:07
PROVIDERS: Admitting Provider Obstetrics & Gynecology; PCP Physician Assistant; Visit Provider Obstetrics & Gynecology
PROC: 10D00Z1 Extraction of Products of Conception, Low, Open Approach (ICD-10-PCS; CPT 59514; principal; 2021-05-14 17:20)
DX: O10.92 Unspecified pre-existing hypertension complicating childbirth (principal); O76 Abnormality in fetal heart rate and rhythm complicating labor and delivery; O32.4XX0 Maternal care for high head at term, not applicable or unspecified; O32.8XX0 Maternal care for other malpresentation of fetus, not applicable or unspecified; Z3A.38 38 weeks gestation of pregnancy; Z37.0 Single live birth
CPT/HCPCS: 36415; 80053; 84550; 85025; 86592; 86850; 86900; 86901; 88307; 90710; A9270; J0131; J1100; J1170; J1885; J2175; J2274; J2405; J2590; J2795; J7120

== ENCOUNTER → 2021-09-05 02:35 | Outpatient (CLI) | payer OTHER, SELFPAY ==
[2021-09-06 14:05] LABS: SARS-CoV-2 RNA PCR Positive
== END ==
PROVIDERS: PCP Family Medicine; Visit Provider Physician Assistant
DX: U07.1 COVID-19 (principal)
CPT/HCPCS: C9803; U0003; U0005

== ENCOUNTER → 2022-05-20 16:03 | Outpatient (CLI) | payer OTHER, SELFPAY ==
--- NOTE | ~2022-05-20 | CT_ITS ---
EXAMINATION: CT soft tissue neck wo con DATE: 05/20/2022 16:22 INDICATION: Right anterior neck swelling. TECHNIQUE: Computed tomography (CT) of the neck was performed without intravenous contrast. Automated exposure control and iterative reconstruction technique were employed. The dose-length product was 3 86.92 mGy-cm. COMPARISON: None FINDINGS: There are no pathologically enlarged lymph nodes. There are nodules in the thyroid measurin g up to 5 mm, likely not clinically significant. There is mild mucosal thickening in left maxillary s inus. The mastoid air cells are normal. There is mild cervical spondylosis. IMPRESSION: 1. Small thyroid nodules, likely not clinically significant. Reviewed, dictated and finalized at location A.
== END ==
PROVIDERS: PCP Nurse Practitioner Adult Health; Visit Provider Nurse Practitioner Adult Health
DX: R22.1 Localized swelling, mass and lump, neck (principal); E04.2 Nontoxic multinodular goiter
CPT/HCPCS: 70490

== ENCOUNTER → 2023-01-22 07:30 | Outpatient (CLI) | payer OTHER, SELFPAY ==
--- NOTE | ~2023-01-22 | US_ITS ---
EXAMINATION: US thyroid DATE: 01/22/2023 08:09 INDICATION: Multinodular goiter. TECHNIQUE: Multiple ultrasound images of the thyroid were obtained. COMPARISON: Neck CT 05/20/2022 FINDINGS: The right thyroid lobe measures 5.2 x 1.8 x 1.7 cm. The left thyroid lobe measures 5.0 x 1.4 x 1.5 c m. In the right thyroid lobe, there is a 5 mm solid, hypoechoic, wider than tall nodule with ill-def ined margin with punctate echogenic focus (TI-RADS TR5). In the right thyroid lobe, there is an 8 mm solid, hypoechoic, wider than tall nodule with smooth margin and punctate echogenic focus (TR5). Ther e are multiple nodules measuring 4 mm or less in the thyroid. In the left thyroid lobe, there is a 5 mm solid, hypoechoic, wider than tall nodule with ill-defined margin and punctate echogenic focus (TR 5). IMPRESSION: 1. Small thyroid nodules. Thyroid ultrasound is recommended in one year. Reviewed, dictated and finalized at location A.
== END ==
PROVIDERS: PCP Family Medicine; Visit Provider Physician Assistant
DX: E04.2 Nontoxic multinodular goiter (principal)
CPT/HCPCS: 76536

== ENCOUNTER 2023-07-21 14:54 | Emergency (ER) | payer OTHER, SELFPAY ==
[2023-07-21 15:14] VITALS: BP 125/80; PULSE 89; RESP 16; TEMP 37.1; O2SAT 100
--- NOTE | 2023-07-21 15:42 | ED.URI ---
HPI - URI/Sore Throat General Chief Complaint: Upper Respiratory Infection Stated Complaint: Sinus Time Seen by Provider: 07/21/23 15:42 Source: patient, RN notes reviewed and old records reviewed Mode of arrival: ambulatory Limitations: no limitations History of Present Illness HPI Narrative: 28-year-old female presents to the [facility] with complaints of sinus congestion for 1 week. Has had increased ear discomfort, pressure and body aches. Denies fevers. Has taken Tylenol and some type of sinus pill. Patient denies any chest pain. Related Data Home Medications Medication Instructions Recorded Confirmed norethindrone (contraceptive) 0.35 0.35 mg PO DAILY 07/21/23 07/21/23 mg tablet (Melody) Allergies Allergy/AdvReac Type Severity Reaction Status Date / Time No Known Allergies Allergy Verified 07/21/23 15:33 Review of Systems Review of Systems: All systems reviewed & are unremarkable except as noted in HPI and below Constitutional: Constitutional: Reports no additional constitutional complaints Eyes: Eyes: Reports no additional eye complaints ENT: Reports as per HPI, Reports otalgia, Reports post nasal drip and Reports sinus pressure Cardiovascular: Cardiovascular: Reports no additional cardiovascular complaints, Denies chest pain and Denies dyspnea Respiratory: Respiratory: Reports no additional respiratory complaints, Denies chest congestion, Denies cough and Denies dyspnea Gastrointestinal: Gastrointestinal: Reports no additional gastrointestinal complaints, Denies abdominal pain, Denies nausea and Denies vomiting Musculoskeletal: Musculoskeletal: Reports no additional musculoskeletal complaints Integumentary/Breasts: Skin/Breast: Reports system reviewed and no additional complaints, except as docu Neurologic: Reports system reviewed and no additional complaints, except as documented Psychiatric: Psychiatric: Reports no additional psychiatric complaints Allergic/Immunologic: Allergic/Immunologic: Reports no additional allergic/immunologic complaints [facility] Past Medical History Medical History HTN (hypertension) Family History Family History Father , suicide Diabetes mellitus type2 Hypertension Mother , MVA No problems noted. Other Depression Social History Social History Social History: Smoking status: Never smoker Second hand tobacco smoke exposure: No Alcohol intake: current Alcohol use details: Occasionally Substance use: never Substance use type: does not use Living arrangements: with family Occupation/Education: occupation Gender identity (if verbalized by the patient): Female Sexual Orientation (if Verbalized by the Patient): Straight or Heterosexual Spiritual care concerns: No Comments At the time of my signature, I reviewed and agree with the nursing past medical, surgical, social, and family history. There is no relevant family history pertinent to the patient complaint. Exam Const: General: cooperative, healthy appearing, comfortable, no acute distress, well developed, alert and well nourished Nutritional Appearance: well nourished Orientation/consciousness: patient oriented x3 Limitations: no limitations HENMT: Head: normal to inspection Ears: hearing grossly normal bilaterally, external ears normal, EAC's normal, mastoids normal, no periauricular adenopathy and TM abnormal wth effusion serous bilateral; not bulging and not erythematous Face/Nose/Sinus: Normal external nose present, Normal nares present, Normal nasal mucous membranes and turbinates present, normal facial exam and face symmetric Face and sinus: normal facial exam and face symmetric Mouth: Yes Normal oral and palatal mucosa present, Yes lip normal and Yes moist mucous membra
== END 2023-07-21 15:55 | disposition home or self-care (01) ==
PROVIDERS: Emergency Provider Nurse Practitioner; PCP Physician Assistant
DX: J06.9 Acute upper respiratory infection, unspecified (principal); J32.9 Chronic sinusitis, unspecified; I10 Essential (primary) hypertension
CPT/HCPCS: 99213; G0463

== ENCOUNTER 2024-01-06 07:49 | Outpatient (CLI) | payer OTHER, SELFPAY ==
--- NOTE | ~2024-01-06 | US_ITS ---
EXAMINATION: US thyroid DATE: 01/06/2024 08:09 INDICATION: Nontoxic multinodular goiter. TECHNIQUE: Multiple ultrasound images of the thyroid were obtained. COMPARISON: Ultrasound 01/22/2023 FINDINGS: The right thyroid lobe measures 5.3 x 1.4 x 1.4 cm. The left thyroid lobe measures 5.3 x 1.4 x 1.3 c m. In the left thyroid lobe, there is a 7 mm solid, very hypoechoic, wider than tall nodule with smo oth margins without echogenic foci (TI-RADS TR4). In the left thyroid lobe, there are two 3 mm nodule s. In the right thyroid lobe, there is a 7 mm solid, very hypoechoic, wider than tall nodule with smo oth margins and punctate echogenic focus (TR5). In the right thyroid lobe, there are two 4 mm nodules . IMPRESSION: 1. Small thyroid nodules. Thyroid ultrasound is recommended in one year. Reviewed, dictated and finalized at location A.
== END 2024-01-06 07:50 ==
PROVIDERS: PCP Internal Medicine; Visit Provider Internal Medicine
DX: E04.2 Nontoxic multinodular goiter (principal)
CPT/HCPCS: 76536

== ENCOUNTER 2025-03-17 07:57 | Outpatient (CLI) | payer OTHER, SELFPAY ==
--- NOTE | ~2025-03-17 | US_ITS ---
Thyroid ultrasound. Clinical History: Multinodular goiter COMPARISON: 01/06/2024 Findings: Real-time sonography of the thyroid gland was performed. The right lobe measures 5.3 x 1.7 x 1.5 cm. The left lobe measures 4.7 x 1.4 x 1.5 cm. The isthmus is 3 mm in AP diameter. 5 mm pole cystic nodule present at the left midpole. 3 mm hypoechoic nodule present at the left infer ior pole. 8mm hypoechoic nodule present at the right midpole. Additional hypoechoic right lower pole nodules measure 6 mm and 4 mm in diameter respectively. Impression: Subcentimeter thyroid nodules, as detailed above, essentially stable from prior exam. Reviewed, dictated and finalized at location M. Impression: Subcentimeter thyroid nodules, as detailed above, essentially stable from prior exam.
== END 2025-03-17 07:58 | disposition home or self-care (01) ==
PROVIDERS: PCP Internal Medicine; Visit Provider Internal Medicine
DX: E04.2 Nontoxic multinodular goiter (principal)
CPT/HCPCS: 76536